=== PATIENT | female | born 1995 | race American Indian/Alaskan Native ===

== ENCOUNTER 2019-10-26 02:45 | Outpatient (CLI) | payer SELFPAY ==
[2019-10-26] MEDS ORDERED: LACTATED RINGERS 500 ML IV ONE (03:07)
[2019-10-26 05:09] LABS: Bacteria,Urine 1+ /HPF (Negative); Bilirubin,Urine NEG (Negative); Blood,Urine NEG (Negative); Color,Urine Yellow (Yellow); Mucus,Urine FEW /HPF; Protein,Urine <15 mg/dL mg/dL (Negative); Urobilinogen,Urine < 2.0 mg/dL (<2.0)
[2019-10-29 11:37] VITALS: BP 126/70
== END 2019-10-26 06:00 | disposition home or self-care (01) ==
LOC: TRG 02:45 → APU 02:58 → TRG 06:00
PROVIDERS: ATTEND Obstetrics & Gynecology
DX: O26.893 Other specified pregnancy related conditions, third trimester (principal); Z3A.31 31 weeks gestation of pregnancy
CPT/HCPCS: 59025; 81001; 82962

== ENCOUNTER 2020-10-07 04:20 | Emergency (ER) | payer OTHER ==
[2020-10-07] MEDS ORDERED: ACETAMINOPHEN 500 MG TAB PO ONE (04:37)
[2020-10-07 04:56] LABS: Hematocrit 39.5 % (30.3-42.9); Hemoglobin 13.3 gm/dl (10.1-14.3); Mean Corpuscular HGB Conc 34 % (30-34); Mean Corpuscular Volume 86 fl (79-97); Platelet Count 267 K/mm3 (140-440); Red Blood Count 4.62 M/mm3 (3.65-5.03); Red Cell Distribution Width 15.8 % (13.2-15.2)
[2020-10-07 05:13] LABS: Alanine Aminotransferase 10 units/L (7-56); Albumin 4.3 g/dL (3.9-5); Blood Urea Nitrogen 11 mg/dL (7-17); Calcium 8.9 mg/dL (8.4-10.2); Hemolysis Index 6
[2020-10-07 05:20] LABS: BUN/Creatinine Ratio 18
[2020-10-07 09:26] LABS: Bilirubin,Urine NEG (Negative); Blood,Urine NEG (Negative); Color,Urine Amber (Yellow); Mucus,Urine 3+ /HPF
[2020-10-07] MEDS ORDERED: KETOROLAC 30 MG/1 ML INJ IM ONE (09:29)
--- NOTE | 2020-10-07 09:35 | Emergency Department Report ---
ED General Adult HPI - General Chief complaint: Vaginal Bleeding Stated complaint: LOWER BACK/ABDOMINAL PAIN Source: patient, family, EMS Mode of arrival: Ambulatory Limitations: No Limitations - History of Present Illness Initial comments: 25-year-old -[place] female presents to the emergency room for lower back pain that radiates down her leg and lower abdominal pain for the last 3 days. Patient denies any dysuria no fever or chills no nausea no vomiting no vaginal discharge. Patient denies any trauma. Onset/Timin -: days(s) Location: back Radiation: extremity, distal Severity scale (0 -10): 8 Quality: burning, stabbing Consistency: intermittent Improves with: rest (lying) Worsens with: movement Associated Symptoms: denies other symptoms Treatments Prior to Arrival: none - Related Data Previous Rx's Medication Instructions Recorded Last Taken Type Ibuprofen [Motrin 800 MG tab] 800 mg PO Q8HR PRN #30 tablet 10/07/20 Unknown Rx Nitrofurantoin [place]/M-Cryst 100 mg PO Q12HR 10 Days #20 capsule 10/07/20 Unknown Rx [Macrobid CAP] Allergies Allergy/AdvReac Type Severity Reaction Status Date / Time No Known Allergies Allergy Verified 10/26/19 03:07 ED Review of Systems ROS: Stated complaint: LOWER BACK/ABDOMINAL PAIN Other details as noted in HPI Comment: All other systems reviewed and negative ED Past Medical Hx - Past Medical History Previous Medical History?: Yes Hx Hypertension: No Hx Diabetes: Yes (failed 1 hr and 3 hr GTT) Hx Deep Vein Thrombosis: No Hx Renal Disease: No Hx Sickle Cell Disease: No Hx Seizures: No Hx Asthma: Yes (2010) Hx HIV: No - Surgical History Past Surgical History?: Yes Additional Surgical History: c section. tonsillectomy - Social History Smoking Status: Former Smoker - Medications Home Medications: Home Medications Medication Instructions Recorded Confirmed Last Taken Type Ibuprofen [Motrin 800 MG tab] 800 mg PO Q8HR PRN #30 tablet 10/07/20 Unknown Rx Nitrofurantoin [place]/M-Cryst 100 mg PO Q12HR 10 Days #20 capsule 10/07/20 Unknown Rx [Macrobid CAP] ED Physical Exam - General Limitations: No Limitations General appearance: alert, in no apparent distress - Head Head exam: Present: atraumatic, normocephalic - Eye Eye exam: Present: normal appearance, PERRL - ENT ENT exam: Present: normal exam - Neck Neck exam: Present: normal inspection, full ROM - Respiratory Respiratory exam: Present: normal lung sounds bilaterally. Absent: chest wall tenderness, accessory muscle use - Cardiovascular Cardiovascular Exam: Present: regular rate - GI/Abdominal GI/Abdominal exam: Present: soft, tenderness (Suprapubic). Absent: distended - Back Exam Back exam: Present: full ROM - Expanded Back Exam Expanded Back exam: Sciatic Notch Tenderness: Left, Positive Straight Leg Raise: Left, N egative Straight Leg Raising: Right - Neurological Exam Neurological exam: Present: alert, oriented X3, normal gait - Psychiatric Psychiatric exam: Present: normal affect, normal mood - Skin Skin exam: Present: warm, dry, intact, normal color. Absent: rash ED Course Vital Signs 10/07/20 04:25 Temperature 98.3 F Pulse Rate 61 Respiratory 18 Rate Blood Pressure 122/66 O2 Sat by Pulse 96 Oximetry ED Medical Decision Making - Lab Data Result diagrams: 10/07/20 04:39 10/07/20 04:39 - Medical Decision Making 25-year-old -[place] female presents to the emergency room for lower back pain that radiates down her leg and lower abdominal pain for the last 3 days. Patient denies any dysuria no fever or chills no nausea no vomiting no vaginal discharge. Patient denies any trauma. Straight leg test is positive on the left. Mild tenderness to the abdomen. Urinalysis is positive for urinary tract infection. Discussed with patient we will place her on Macrobid 100 mg p.o. twice daily for 10 days patient is given a Toradol 10mg and prednisone 20mg. Instructed patient to increase her fluid intake advance her diet as tolerated. Void after intercourse and avoid holding her urine. Critical care attestation.: If time is entered above; I have spent that time in minutes in the direct care of this critically ill patient, excluding procedure time. ED Disposition Clinical Impression: Sciatic leg pain UTI (urinary tract infection) Qualifiers: Urinary tract infection type: site unspecified Hematuria presence: without hematuria Qualified Code(s): N39.0 - Urinary tract infection, site not specified Disposition: - TO HOME OR SELFCARE Is pt being admited?: No Does the pt Need Aspirin: No Condition: Stable Instructions: Urinary Tract Infection, Adult, [id number], Sciatica, [id number] Additional Instructions: Please complete antibiotics as prescribed. Pain medication as needed. Is very important for you to increase your fluid intake. Please void after intercourse. Be sure not holding your urine. Prescriptions: Nitrofurantoin [place]/M-Cryst [Macrobid CAP] 100 mg PO Q12HR 10 Days #20 capsule Ibuprofen [Motrin 800 MG tab] 800 mg PO Q8HR PRN #30 tablet PRN Reason: Pain , Severe (7-10) Referrals: PRIMARY CARE, [Primary Care Provider] - 3-5 Days [facility] [Provider Group] - 3-5 Days [facility] [Outside] - 3-5 Days
[2020-10-07 09:53] VITALS: BP 125/70
[2020-10-07] MEDS ORDERED: predniSONE 20 MG TAB PO NR (10:00)
== END 2020-10-07 09:53 | disposition home or self-care (01) ==
LOC: ED 04:20
DX: M54.32 Sciatica, left side (principal); N39.0 Urinary tract infection, site not specified; E11.9 Type 2 diabetes mellitus without complications; J45.909 Unspecified asthma, uncomplicated; Z87.891 Personal history of nicotine dependence; Z79.899 Other long term (current) drug therapy; Z90.49 Acquired absence of other specified parts of digestive tract
CPT/HCPCS: 36415; 80053; 81001; 84703; 85027; 86900; 86901; 87086; 96372; 99284; J1885; J7512